=== PATIENT | female | born 2000 | race Caucasian/White ===

== ENCOUNTER 2018-02-15 02:56 | Inpatient (IN) | payer OTHER ==
[2018-02-15] MEDS ORDERED: ONDANSETRON 4 MG INJ IV (04:30)
[2018-02-15] MEDS: SOD CHLORIDE 0.9% 1,000 ML IV ×2 (04:45→18:48)
[2018-02-15] MEDS: HYDROCODONE/APAP (5/325) TAB PO ×2 (05:02→14:01)
[2018-02-15] MEDS: morphine 2 MG INJ IV (07:11)
[2018-02-15 08:56] LABS: ADD MAN DIFF? NO
[2018-02-15] MEDS: CEPHALEXIN 500 MG CAP PO ×2 (08:58→18:02)
[2018-02-15 08:59] LABS: BASOPHILS % 0.2 % (0.0-2.0); HEMATOCRIT 26.1 % (37.0-47.0); LYMPHOCYTES # 2.4 10^3/ul (0.8-2.9); LYMPHOCYTES % 28.6 % (18.0-55.0); MEAN CORPUSCULAR HEMOGLOBIN 29.6 pg (29.0-33.0); MEAN CORPUSCULAR HGB CONC 34.5 g/dl (32.0-37.0); MEAN CORPUSCULAR VOLUME 85.9 fl (72.0-104.0); MONOCYTE # 0.9 10^3/ul (0.3-0.9); MONOCYTES % 10.5 % (0.0-13.0); NEUTROPHIL # 5.1 10^3/ul (1.6-7.5); NEUTROPHILS % 60.6 % (30.0-74.0); PLATELET COUNT 144 10^3/UL (140-415); RED BLOOD COUNT 3.04 10^6/ul (4.20-5.40); RED CELL DISTRIBUTION WIDTH 13.8 % (11.5-14.5)
[2018-02-15 08:59] LABS: WHITE BLOOD COUNT 8.4 10^3/ul (4.8-10.8)
[2018-02-15 09:30] LABS: ALANINE AMINOTRANSFERASE 27 IU/L (13-69); ALBUMIN 2.4 g/dl (3.3-4.9); ALBUMIN/GLOBULIN RATIO 0.92; ALKALINE PHOSPHATASE 40 IU/L (42-121); ANION GAP 12 (8-16); ASPARTATE AMINO TRANSFERASE 21 IU/L (15-46); BLOOD UREA NITROGEN 9 mg/dl (7-20); CALCIUM 7.6 mg/dl (8.4-10.2); CARBON DIOXIDE 23 mmol/L (21-31); CHLORIDE 109 mmol/L (97-110); CREATININE 0.57 mg/dl (0.44-1.00); GLUCOSE 92 mg/dl (70-220); POTASSIUM 3.6 mmol/L (3.5-5.1); SODIUM 140 mmol/L (135-144)
[2018-02-15] MEDS: POLYSACCHARIDE IRON COMPLEX CAP PO ×2 (18:02→21:10)
[2018-02-15] MEDS: ACETAMINOPHEN 325 MG TAB PO (21:16)
[2018-02-16] MEDS: CEPHALEXIN 500 MG CAP PO ×3 (01:29→11:13)
[2018-02-16] MEDS: ACETAMINOPHEN 325 MG TAB PO (06:26)
[2018-02-16] MEDS: morphine LIQ (10 MG/5 ML) CUP PO (08:04)
[2018-02-16 09:06] LABS: ADD MAN DIFF? NO
[2018-02-16] MEDS: SOD CHLORIDE 0.9% 1,000 ML IV (09:06)
[2018-02-16 09:14] LABS: BASOPHILS % 0.3 % (0.0-2.0); EOSINOPHILS % 0.1 % (0.0-7.0); HEMATOCRIT 27.5 % (37.0-47.0); HEMOGLOBIN 9.4 g/dl (12.0-16.0); LYMPHOCYTES # 2.8 10^3/ul (0.8-2.9); LYMPHOCYTES % 24.1 % (18.0-55.0); MEAN CORPUSCULAR HEMOGLOBIN 29.2 pg (29.0-33.0); MEAN CORPUSCULAR HGB CONC 34.2 g/dl (32.0-37.0); MEAN CORPUSCULAR VOLUME 85.4 fl (72.0-104.0); MEAN PLATELET VOLUME 11.4 fl (7.4-10.4); MONOCYTE # 0.8 10^3/ul (0.3-0.9); MONOCYTES % 7.3 % (0.0-13.0); NEUTROPHIL # 7.8 10^3/ul (1.6-7.5); NEUTROPHILS % 67.8 % (30.0-74.0); PLATELET COUNT 184 10^3/UL (140-415); RED BLOOD COUNT 3.22 10^6/ul (4.20-5.40); RED CELL DISTRIBUTION WIDTH 13.7 % (11.5-14.5)
[2018-02-16 09:14] LABS: WHITE BLOOD COUNT 11.5 10^3/ul (4.8-10.8)
[2018-02-16 09:39] LABS: ANION GAP 12 (8-16); BLOOD UREA NITROGEN 5 mg/dl (7-20); CALCIUM 8.3 mg/dl (8.4-10.2); CARBON DIOXIDE 24 mmol/L (21-31); CHLORIDE 106 mmol/L (97-110); CREATININE 0.55 mg/dl (0.44-1.00); GLUCOSE 102 mg/dl (70-220); POTASSIUM 3.6 mmol/L (3.5-5.1); SODIUM 138 mmol/L (135-144)
[2018-02-16] MEDS: INFLUENZA VIRUS VACCINE 0.5 ML SYG IM* (10:59)
[2018-02-16] MEDS: POLYSACCHARIDE IRON COMPLEX CAP PO (11:13)
== END 2018-02-16 15:50 | disposition home or self-care (01) | DRG 812 ==
LOC: MS4 02:56
DX: D62 Acute posthemorrhagic anemia (principal); R00.0 Tachycardia, unspecified; E66.9 Obesity, unspecified; Z68.31 Body mass index [BMI] 31.0-31.9, adult; T81.82XA Emphysema (subcutaneous) resulting from a procedure, initial encounter; Y83.8 Other surgical procedures as the cause of abnormal reaction of the patient, or of later complication, without mention of misadventure at the time of the procedure; Y92.019 Unspecified place in single-family (private) house as the place of occurrence of the external cause; E86.1 Hypovolemia; R55 Syncope and collapse; E88.09 Other disorders of plasma-protein metabolism, not elsewhere classified
CPT/HCPCS: 80048; 80053; 85025; 87081